=== PATIENT | male | born 2000 | race Two or more races ===

== ENCOUNTER 2022-04-28 09:02 | Emergency (ER) | payer OTHER ==
[~2022-04-28] VITALS: Ht 167.6 cm; Wt 66.7 kg
== END 2022-04-28 13:24 | disposition home or self-care (01) ==
LOC: EMR PED 09:02 → ER 09:02 → EMR PED 10:21
DX: S09.90XA Unspecified injury of head, initial encounter (principal); W19.XXXA Unspecified fall, initial encounter; Y93.9 Activity, unspecified; Y92.9 Unspecified place or not applicable; Y99.9 Unspecified external cause status

== ENCOUNTER 2022-05-05 10:19 | Emergency (ER) | payer OTHER ==
[~2022-05-05] VITALS: Ht 167.6 cm; Wt 74.8 kg
== END 2022-05-05 12:58 | disposition home or self-care (01) ==
LOC: EMR PED 10:19 → ER 10:22 → EMR PED 10:22
DX: Z48.02 Encounter for removal of sutures (principal)